=== PATIENT | male | born 1985 | race Caucasian/White ===

== ENCOUNTER → 2025-06-24 | Outpatient (CLI) | payer OTHER, SELFPAY ==
[2025-06-24 10:16] LABS: Coccid Serology, CF CSF (UCD)* See Sep Rpt
[2025-06-24 11:37] LABS: Glucose,CSF 55 mg/dL (40-70); Protein Total,CSF 43 mg/dL (8-32)
[2025-06-24 11:55] LABS: Misc Send Out* See Sep Rpt
[2025-06-24 12:49] LABS: CSF Gram Stain Alert Gram Stain Completed
[2025-06-24 13:07] LABS: CSF Cell Count Tube # Tube # 4; CSF Color Colorless (Colorless); CSF Red Blood Cell 375 /cmm; CSF White Blood Cell 0 /cmm; CSF, Appearance Clear (Clear)
[2025-06-28 23:34] LABS: Albumin, CSF 19.6 mg/dL (8.0-42.0); IgG Index, CSF 0.61 (<0.70); IgG, CSF 3.2 mg/dL (0.8-7.7); IgG, Serum 1140 mg/dL (600-1640); Synthesis Rate IgG, CSF 0.0 mg/24 h (-9.9 TO +3.3)
[2025-06-29 06:32] LABS: Albumin, Serum 4.3 g/dL (3.6-5.1)
[2025-06-29 06:33] LABS: VDRL, CSF Qual* NON-REACTIVE
[2025-07-01 06:35] LABS: Angiotensin Convert Enz, CSF* <5 U/L (< OR = 15); Myelin Basic Protein, CSF* <2.0 mcg/L (< OR = 4.0); Oligoclonal Bands, CSF* ABSENT (ABSENT)
== END | disposition home or self-care (01) ==
LOC: COPL 09:55
PROVIDERS: PCP Nurse Practitioner Family; Referring Provider Psychiatry & Neurology Neurology; Visit Provider Psychiatry & Neurology Neurology
DX: G37.9 Demyelinating disease of central nervous system, unspecified (principal)
CPT/HCPCS: 36415; 82040; 82042; 82164; 82784; 82945; 83873; 83916; 84157; 86171; 86592; 87070; 87205; 89051